=== PATIENT | female | born 1975 | race African-American/Black ===

== ENCOUNTER 2020-04-03 18:06 | Emergency (ER) | payer BC, OTHER ==
[~2020-04-03] VITALS: Ht 165.1 cm; Wt 88.9 kg
[2020-04-03 18:08] VITALS: BP 143/91
== END 2020-04-03 18:40 | disposition home or self-care (01) ==
LOC: ER 18:06
DX: T16.2XXA Foreign body in left ear, initial encounter (principal); J45.909 Unspecified asthma, uncomplicated; Z98.890 Other specified postprocedural states; Z91.012 Allergy to eggs; Y93.E8 Activity, other personal hygiene; Y93.89 Activity, other specified; Y92.89 Other specified places as the place of occurrence of the external cause; Y99.8 Other external cause status
CPT/HCPCS: 69200; 99284